=== PATIENT | male | born 1995 | race Caucasian/White ===

== ENCOUNTER 2023-04-13 14:06 | Emergency (ER) | payer MEDICARE, MEDICAID, OTHER ==
[~2023-04-13] VITALS: Ht 175.3 cm; Wt 65.0 kg
[2023-04-13 15:55] VITALS: BP 129/101; PULSE 86; RESP 17; TEMP 98.3; O2SAT 97
[2023-04-13] MEDS ORDERED: SEVE800T8 PO (16:22)
[2023-04-13] MEDS ORDERED: PANT40SU2 PO (16:22)
[2023-04-13] MEDS ORDERED: MINO2.5T19 PO (16:22)
[2023-04-13] MEDS ORDERED: LACT1CAP65 PO (16:22)
[2023-04-13] MEDS ORDERED: ATEN25TA PO (16:22)
[2023-04-13] MEDS ORDERED: CLON0.3T PO (16:22)
[2023-04-13] MEDS ORDERED: SENN-362 PO (16:22)
[2023-04-13] MEDS ORDERED: SUCR500T PO (16:22)
[2023-04-13] MEDS ORDERED: LIDO1ADH41 TOP (16:22)
[2023-04-13] MEDS ORDERED: NAFC2FRO IV (16:22)
[2023-04-13] MEDS ORDERED: CINA30TA2 PO (16:22)
[2023-04-13] MEDS ORDERED: PRED5TAB PO (16:22)
[2023-04-13] MEDS ORDERED: GABA-530 PO (16:22)
[2023-04-13 16:30] VITALS: RESP 17; O2SAT 97
[2023-04-13 17:47] VITALS: BP 129/101; PULSE 87; RESP 15; O2SAT 97
[2023-04-13 18:02] VITALS: BP 146/105; PULSE 89; RESP 14; O2SAT 98
[2023-04-13 18:16] VITALS: BP 147/107; PULSE 84; RESP 15; O2SAT 97
[2023-04-13 18:31] VITALS: BP 144/108; PULSE 85; RESP 15; O2SAT 99
== END 2023-04-13 18:45 | disposition short-term general hospital (02) ==
LOC: ER 14:06
DX: J86.9 Pyothorax without fistula (principal)
CPT/HCPCS: 32551; 99285

== ENCOUNTER 2023-04-20 08:38 | Day surgery (SDC) | payer MEDICARE, MEDICAID, OTHER ==
[2023-04-20] VITALS (14 sets, daily range): BP systolic 100–126; BP diastolic 48–80; PULSE 98–116; RESP 16–24; TEMP 99.5; O2SAT 95–100
[~2023-04-20 08:38] MED LIST: ATEN25TA PO; CINA30TA2 PO; CLON0.3T PO; GABA-530 PO; LACT1CAP65 PO; LIDO1ADH41 TOP; MINO2.5T19 PO; NAFC2FRO IV; PANT40SU2 PO; PRED5TAB PO; SENN-362 PO; SEVE800T8 PO; SUCR500T PO
[2023-04-20] MEDS ORDERED: EMOL250L2 TOP (08:50)
[2023-04-20] MEDS ORDERED: DIPH25CA83 PO (08:50)
[2023-04-20] MEDS ORDERED: BENCRM TOP (08:50)
[2023-04-20] MEDS ORDERED: ACET-2119 PO (08:50)
[2023-04-20] MEDS ORDERED: CYCL-1 PO (08:50)
[2023-04-20] MEDS ORDERED: HYDR-3972 PO (08:54)
[2023-04-20] MEDS ORDERED: dexmedetomidin/NS 400mcg/100ml 100 ML IV SCH (09:05)
[2023-04-20 09:18] LABS: BASOPHILS # (AUTO) 0.1 X10'3 (0-0.2); BASOPHILS % (AUTO) 1.4 % (0-1); EOSINOPHILS # (AUTO) 0.3 X10'3 (0-0.9); EOSINOPHILS % (AUTO) 2.6 % (0-6); LYMPHOCYTES # (AUTO) 3.9 X10'3 (1.1-4.8); LYMPHOCYTES % (AUTO) 38.4 % (21-51); MEAN CORPUSCULAR HEMOGLOBIN 31.2 PG (27.0-31.0); MEAN CORPUSCULAR HGB CONC 32.6 g/dL (33.0-36.5); MEAN CORPUSCULAR VOLUME 95.7 FL (78-98); MEAN PLATELET VOLUME 6.3 FL (7.4-10.4); MONOCYTES # (AUTO) 0.7 X10'3 (0-0.9); MONOCYTES % (AUTO) 6.7 % (2-12); NEUTROPHILS # (AUTO) 5.2 X10'3 (1.8-7.7); NEUTROPHILS % (AUTO) 50.9 % (42-75); PLATELET COUNT 450 X10'3 (140-440); RED BLOOD COUNT 2.18 X10'6 (4.70-6.10); RED CELL DISTRIBUTION WIDTH 20.8 % (11.5-14.5); WHITE BLOOD COUNT 10.2 X10'3 (4.5-11.0)
[2023-04-20] MEDS ORDERED: LIDOcaine 1% 30ml preserv. free vial ONE (09:22)
[2023-04-20] MEDS ORDERED: fentaNYL/PF 50MCG/1 ML 2ML syringe ONE ×2 (09:28→09:52)
[2023-04-20] MEDS ORDERED: midazolam 1 mg/ML 2ml injection ONE ×3 (09:28→10:02)
[2023-04-20 09:43] LABS: HEMATOCRIT 20.9 % (42.0-52.0); HEMOGLOBIN 6.8 g/dl (14.0-17.9)
[2023-04-20] MEDS: normal saline 1000ml 1,000 ML IV SCH (09:45)
[2023-04-20 09:53] LABS: ALBUMIN 1.3 G/DL (3.4-5.0); ANION GAP 11 (8-16); BLOOD UREA NITROGEN 25 MG/DL (7-18); BUN/CREATININE RATIO 4.3 (10.0-20.0); CALCIUM 8.6 MG/DL (8.5-10.1); CHLORIDE 101 MMOL/L (99-107); GLUCOSE 88 MG/DL (70-104); SODIUM 138 MMOL/L (135-145); eGFR 12 ML/MIN
[2023-04-20 10:06] LABS: ANISOCYTOSIS 3+; PLATELET ESTIMATE INCREASED; POLYCHROMASIA 1+; ROULEAUX 1+; SPHEROCYTES 1+
[2023-04-20 10:07] LABS: HYPOCHROMASIA 1+
[2023-04-20 10:42] LABS: BFSOURCE LEFT PLEURAL FLD; PLEURAL FLUID PH 6.896 (7.63-7.65)
[2023-04-20 11:19] LABS: INR 1.4 INR; PROTHROMBIN TIME 14.4 SECONDS (9.0-12.0)
[2023-04-20 12:24] LABS: BFAPPEAR CLOUDY; BFSOURCE LEFT PLEURAL FLD; GLUCOSE,BODY FLUID 6 MG/DL; TOTAL PROTEIN,BODY FLUID 6.1 G/DL
[2023-04-20 12:25] LABS: BFCOLOR OTHER; BFVOLUME 65 ML
[2023-04-20 12:26] LABS: BF RBC COUNT 144 /CU MM; BF WBC COUNT 12700 /CU MM (0-1000); EOSINOPHILS,BODY FLUID 1 %; LYMPHOCYTES,BODY FLUID 7 %; MONOCYTES,BODY FLUID 3 %; NEUTROPHILS,BODY FLUID 89 %
== END 2023-04-20 12:40 | disposition short-term general hospital (02) ==
LOC: SSTAY O 08:38
PROVIDERS: ATTEND Radiology Diagnostic Radiology
DX: J90 Pleural effusion, not elsewhere classified (principal); J86.9 Pyothorax without fistula; N18.6 End stage renal disease; Z99.2 Dependence on renal dialysis; Z87.01 Personal history of pneumonia (recurrent); Z98.890 Other specified postprocedural states; Z94.0 Kidney transplant status; Z88.1 Allergy status to other antibiotic agents; Z79.899 Other long term (current) drug therapy
CPT/HCPCS: 32557; 36415; 71045; 80048; 82945; 83986; 84157; 85025; 85610; 87070; 89051; C1729; C1769; J2250; J3010; J3490; J7030; 85008; A4421; A4615; A6258; A6449

== ENCOUNTER 2023-05-02 14:05 | Outpatient (CLI) | payer MEDICARE, MEDICAID, OTHER ==
[~2023-05-02 14:05] MED LIST changes: +ACET-2119 PO; +BENCRM TOP; +CYCL-1 PO; +DIPH25CA83 PO; +EMOL250L2 TOP; -GABA-530 PO; +HYDR-3972 PO
== END 2023-05-02 23:59 | disposition home or self-care (01) ==
LOC: RAD 14:05
PROVIDERS: ATTEND Internal Medicine Critical Care Medicine
DX: J96.00 Acute respiratory failure, unspecified whether with hypoxia or hypercapnia (principal); I31.39 Other pericardial effusion (noninflammatory)
CPT/HCPCS: 71250